=== PATIENT | male | born 1975 | race Two or more races ===

== ENCOUNTER 2023-04-29 14:10 | Inpatient (IN) | payer OTHER ==
[2023-04-29 15:50] VITALS: BMI 19.8
[2023-04-29] MEDS ORDERED: IBUPROFEN 400 MG TABLET (FP) PO PRN (16:28)
[2023-04-29] MEDS ORDERED: MAGNESIUM HYDROX 2400MG/30ML ORAL SUSPENSION 30 ML CUP PO PRN (16:28)
[2023-04-29] MEDS ORDERED: BENZOCAINE/MENTHOL (CHLORASEPTIC ) LOZENGE MM PRN (16:28)
[2023-04-29] MEDS ORDERED: BENZONATATE 200 MG CAPSULE PO PRN (16:28)
[2023-04-29] MEDS ORDERED: MAG HYDROX/AL HYDROX/SIMETH 30 ML UNIT-DOSE CUP PO PRN (16:28)
[2023-04-29] MEDS ORDERED: NICOTINE POLACRILEX 2 MG LOZENGE BC PRN (16:28)
[2023-04-29] MEDS ORDERED: LOPERAMIDE HCL 2 MG CAPSULE PO PRN (16:28)
[2023-04-29] MEDS ORDERED: ACETAMINOPHEN 325 MG TABLET (FP) PO PRN (16:28)
[2023-04-29] MEDS ORDERED: NICOTINE POLACRILEX 2 MG GUM BUC PRN (16:28)
[2023-04-29] MEDS ORDERED: guaiFENesin 600 MG TABLET.ER (FP) PO PRN (16:28)
[2023-04-29] MEDS ORDERED: POLYETHYLENE GLYCOL (HEALTHYLAX) 3350 17 GM PACKET PO PRN (16:28)
[2023-04-29] MEDS: TUBERCULIN PPD 5 TU/0.1ML SYRINGE (IN PATIENT USE ONLY) ID ONE (19:40)
[2023-04-29] MEDS: THIAMINE HCL 100 MG TABLET (FP) PO SCH (21:23)
[2023-04-29] MEDS: MELATONIN 5 MG TABLETS PO SCH (21:23)
[2023-04-30] MEDS: PRENATAL VITAMINS W/ FOLIC ACID TABLET (FP) PO SCH (10:20)
[2023-04-30 13:17] LABS: HEMATOCRIT 36.6 % (35.4-49); HEMOGLOBIN 12.6 GM/dL (11.7-16.9); MCH 32.4 pg (25.7-33.7); MCHC 34.5 g/dl (32.0-35.9); MEAN CELL VOLUME 93.9 fl (80-96); MEAN PLT VOLUME 8.2 fl (7.5-11.1); PLATELET COUNT 110 10^3/uL (134-434); RDW 13.1 % (11.9-15.9); WHITE BLOOD COUNT 4.8 K/mm3 (4.0-10.0)
[2023-04-30 13:34] LABS: POTASSIUM 3.2 mmol/L (3.5-5.1)
[2023-04-30 13:36] LABS: CALCIUM 9.3 mg/dL (8.5-10.1)
[2023-04-30 13:37] LABS: ALBUMIN 3.6 g/dl (3.4-5.0)
[2023-04-30 13:41] LABS: TOT PROT 7.5 g/dl (6.4-8.2)
[2023-04-30 13:42] LABS: BILIRUBIN,TOTAL 1.1 mg/dL (0.2-1)
[2023-04-30 13:44] LABS: BLOOD UREA NITROGEN 10.2 mg/dL (7-18); CREATININE 0.8 mg/dL (0.55-1.3)
[2023-04-30] MEDS: GABAPENTIN 300 MG CAPSULE PO SCH (14:36)
[2023-04-30 16:18] LABS: URINE APPEARANCE CLOUDY; URINE BILIRUBIN NEGATIVE (NEGATIVE); URINE COLOR YELLOW; URINE GLUCOSE (UA) NEGATIVE (NEGATIVE); URINE KETONE 1+ (NEGATIVE); URINE LEUK ESTERASE NEGATIVE (NEGATIVE); URINE NITRITE NEGATIVE (NEGATIVE); URINE PROTEIN NEGATIVE (NEGATIVE)
[2023-04-30] MEDS: MIRTAZAPINE 15 MG TABLET (FP) PO SCH (21:31)
[2023-05-01] MEDS: IBUPROFEN 600 MG TABLET (FP) PO PRN (14:18)
[2023-05-02 09:20] VITALS: RESP 18
[2023-05-03] MEDS: NICOTINE 7 MG/24 HOURS TOPICAL PATCH TD SCH (12:47)
[2023-05-04 12:39] LABS: MAGNESIUM 1.7 mg/dL (1.8-2.4)
[2023-05-05] MEDS: GABAPENTIN 300 MG CAPSULE PO SCH (14:51)
[2023-05-05] MEDS: MAGNESIUM OXIDE 400 MG TABLET (FP) PO SCH (21:35)
[2023-05-06 12:38] LABS: INR 0.96 (0.83-1.09); PROTHROMBIN TIME (PATIENT) 11.1 SEC (9.7-13.0)
[2023-05-07] MEDS: METHYL SALICYLATE/MENTHOL OINT 30 GM TUBE TP PRN (15:19)
[2023-05-10] MEDS: MIRTAZAPINE 15 MG TABLET (FP) PO SCH (21:39)
[2023-05-11] MEDS: hydrOXYzine PAMOATE 25 MG CAPSULE (FP) PO PRN (21:36)
[2023-05-12] MEDS: GABAPENTIN 300 MG CAPSULE PO SCH (15:49)
[2023-05-13] MEDS: SUVOREXANT 10 MG TABLET PO PRN (21:13)
[2023-05-16] MEDS: SUVOREXANT 10 MG TABLET PO PRN (21:48)
[2023-05-18] MEDS: BACITRACIN 0.9 GM PACKET TP SCH (15:51)
[2023-05-18] MEDS: LACTULOSE 20 GM/30 ML UDC (FOR ORAL USE ONLY) PO SCH (21:29)
[2023-05-18] MEDS: CALAMINE 8% TOPICAL LOTION 177 ML BOTTLE TP PRN (21:31)
[2023-05-23] MEDS ORDERED: HYDROCORTISONE 0.5% TOPICAL OINTMENT TUBE TP PRN (08:40)
[2023-05-23] MEDS: HYDROCORTISONE 0.5% TOPICAL CREAM 30 GM TUBE TP PRN (21:34)
[2023-05-25] MEDS: GABAPENTIN 400 MG CAPSULE PO SCH (14:37)
[2023-05-25] MEDS: SUVOREXANT 10 MG TABLET PO PRN (21:14)
[2023-05-27 07:04] VITALS: BP 108/83; PULSE 92; TEMP 97.1
== END 2023-05-27 11:45 | disposition home or self-care (01) | DRG 772 ==
LOC: YASAS 14:10 → Y3NR 18:36 → Y5N 05-02 12:33
PROVIDERS: ADMIT Allergy & Immunology; ATTEND Psychiatry & Neurology Pain Medicine
PROC: HZ42ZZZ Group Counseling for Substance Abuse Treatment, Cognitive-Behavioral (ICD-10-PCS; principal; 2023-04-29)
DX: F10.20 Alcohol dependence, uncomplicated (principal); F12.20 Cannabis dependence, uncomplicated; F17.210 Nicotine dependence, cigarettes, uncomplicated; F32.9 Major depressive disorder, single episode, unspecified; E72.20 Disorder of urea cycle metabolism, unspecified; F10.282 Alcohol dependence with alcohol-induced sleep disorder; F10.24 Alcohol dependence with alcohol-induced mood disorder; G62.9 Polyneuropathy, unspecified; G47.00 Insomnia, unspecified; L98.8 Other specified disorders of the skin and subcutaneous tissue; R21 Rash and other nonspecific skin eruption
CPT/HCPCS: 36415; 80053; 80305; 81003; 82140; 82607; 82652; 83036; 83735; 85027; 85610; 86780; 87635; 93005; 93010